=== PATIENT | male | born 1980 | race Caucasian/White ===

== ENCOUNTER 2016-07-30 16:54 | Emergency (ER) | payer SELFPAY ==
[2016-07-30] MEDS ORDERED: SODIUM CHLORIDE 0.9% 1,000 ML ONE (21:55)
[2016-07-30] MEDS ORDERED: FAMOTIDINE 20 MG INJ ONE (21:55)
[2016-07-30] MEDS ORDERED: ONDANSETRON 4 MG VIAL ONE (21:55)
[2016-07-30] MEDS ORDERED: LIDOCAINE 2% VISC 15 ML UDC ONE (22:59)
[2016-07-30] MEDS ORDERED: ALU/MAG/SIM 30 ML UDC ONE (22:59)
== END 2016-07-31 00:50 | disposition home or self-care (01) ==
LOC: ER 16:54
DX: K29.20 Alcoholic gastritis without bleeding (principal); F10.20 Alcohol dependence, uncomplicated
CPT/HCPCS: 36415; 71020; 76705; 80053; 80320; 81001; 83690; 85025; 85610; 85730; 86677; 96361; 96374; 96375